=== PATIENT | female | born 1970 | race Caucasian/White ===

== ENCOUNTER 2020-07-01 09:25 | Emergency (ER) | payer MEDICAID ==
[~2020-07-01] VITALS: Ht 167.6 cm; Wt 63.5 kg
[2020-07-01] MEDS ORDERED: VENTOLIN HFA18 GM INH (12:13)
[2020-07-01] MEDS ORDERED: PREDNISONE20 MG PO (12:14)
[2020-07-01] MEDS ORDERED: ZITHROMAX250 MG PO (12:14)
--- NOTE | 2020-07-01 13:37 | EKG ---
[facility] [address] [place], [place] [address] Signed Normal sinus rhythm Right atrial enlargement Borderline ECG No previous ECGs available Confirmed by MATHEW LAY MD ([id number]) on 07/01/2020 1:37:48 PM Electronically Signed By: MATHEW LAY MD 07/01/20 1337 PATIENT NAME: VINOD HESTER Electrocardiogram DATE OF : [birth year] PHYSICIAN: MATHEW LYA MD REPORT #: [id number] REPORT IS CONFIDENTIAL AND NOT TO BE RELEASED WITHOUT AUTHORIZATION
--- NOTE | 2020-07-02 19:21 | PATH ---
[facility] [address] [place], [place] [address] Signed ORDERING PHYSICIAN: Enzo Katz MD PATIENT NAME: VINOD HESTER GENDER: F : 1970 Prior History: No cases found. SPECIMEN(S): No Source Given MOLECULAR PATHOLOGY RESULTS: SARS-CoV-2 Not Detected ADDITIONAL NOTES.: The [place] Fusion SARS-CoV-2 Assay is a multiplex real-time PCR (RT-PCR) in vitro diagnostic test intended for the qualitative detection of RNA from SARS-CoV-2 from individuals who meet COVID-19 clinical and/or epidemiological criteria. In general, SARS-CoV-2 RNA can be detected during the acute phase of infection. Positive results indicate the presence of SARS-CoV-2 RNA. Clinical correlation with patient history and other diagnostic information is necessary to determine patient infection status. Positive results do not rule out bacterial infection or co-infection with other viruses. Negative results do not preclude SARS-CoV-2 infection and should not be used as the sole basis for patient management decisions. Negative results must be combined with other clinical observations, patient history, and epidemiological information. The [place] Fusion SARS-CoV-2 Assay is not yet approved or cleared by the [place] FDA. When there are no FDA-approved or cleared tests available, and other criteria are met, FDA can make tests available under an emergency access mechanism called an Emergency Use Authorization (EUA). The EUA for this test is supported by the [employer] of Health and Human Service's (HHS's) declaration that circumstances exist to justify the emergency use of in vitro diagnostics for the detection and/or diagnosis of the virus that causes COVID-19. This EUA will remain in effect for the duration of the COVID-19 declaration justifying emergency of IVDs, unless it is terminated or revoked by FDA, after which the test may no longer be used. The [place] Fusion SARS-CoV-2 Assay is for use only under EUA PATIENT NAME: VINOD HESTER PATHOLOGY DATE OF : 66 REPORT #: [id number] PHYSICIAN: KARINA PATHOLOGY PCP: OTHER PCP REPORT IS CONFIDENTIAL AND NOT TO BE RELEASED WITHOUT AUTHORIZATION [facility] [address] [place], [place] [address] Signed in [place] laboratories certified under the Clinical Laboratory Improvement Amendments of 1988 (CLIA) to perform high complexity tests. [facility] is certified under CLIA to perform high complexity clinical laboratory testing. PERFORMING LABORATORY.: Molecular testing was performed by [facility] [address] [place], [place] [address] [address] (Manager Group: Milton Cabrera D.O.; CLIA#: [id number]) Diagnostician: System Interface Pathologist Electronically Signed 07/02/2020 Copies: ~ PATIENT NAME: VINOD HESTER PATHOLOGY DATE OF : [birth year] REPORT #: [id number] PHYSICIAN: KARINA PORTILLO PCP: OTHER PCP REPORT IS CONFIDENTIAL AND NOT TO BE RELEASED WITHOUT AUTHORIZATION
== END 2020-07-01 12:57 | disposition home or self-care (01) ==
LOC: ED 09:25
DX: J40 Bronchitis, not specified as acute or chronic (principal); R91.1 Solitary pulmonary nodule; F11.10 Opioid abuse, uncomplicated; F15.90 Other stimulant use, unspecified, uncomplicated; F17.200 Nicotine dependence, unspecified, uncomplicated; Z88.8 Allergy status to other drugs, medicaments and biological substances; Z20.828 Contact with and (suspected) exposure to other viral communicable diseases
CPT/HCPCS: 71045; 71260; 80053; 81001; 83690; 84484; 85025; 85379; 93005; 93010; 96361; 99285-25; C9803; J0780; J1100; J1885; J2405; J7030; Q9967; U0003